=== PATIENT | female | born 1945 | race Caucasian/White ===

== ENCOUNTER → 2018-02-27 | Outpatient (CLI) | payer MEDICARE, OTHER | END | disposition home or self-care (01) | LOC: PCVCCLINIC 11:50 | PROVIDERS: ATTEND Internal Medicine | DX: E11.9 Type 2 diabetes mellitus without complications (principal); I51.81 Takotsubo syndrome; R06.00 Dyspnea, unspecified; F17.201 Nicotine dependence, unspecified, in remission; Z79.899 Other long term (current) drug therapy | CPT/HCPCS: 93005; G0463 ==

== ENCOUNTER → 2018-03-06 | Outpatient (CLI) | payer MEDICARE, OTHER ==
[~2018-03-06] MED LIST: REGADENOSON 0.4 MG/5 ML DISP.SYRIN. IV ONE
--- NOTE | 2018-03-06 12:21 | PCVCIMAG ---
APPROVED REPORT Study performed: 03/06/2018 08:13:55 EXAM: Comprehensive 2D, Doppler, and color-flow Echocardiogram Patient Location: Echo lab Status: routine BSA: 1.57 HR: 87 bpmBP: 110/70 mmHg Rhythm: NSR Other Information Study Quality: Adequate Indications Diabetes Dyspnea Hypertension/HDD Hyperlipidemia, COPD, 2D Dimensions LVEF(%): 67.34 (>50%) IVSd: 12.37 (7-11mm)LVOT Diam: 13.80 (18-24mm) LVDd: 27.57 mm PWd: 12.07 (7-11mm)Ascending Ao: 22.92 (22-36mm) LVDs: 17.69 (25-40mm) Left Atrium: 37.52 (27-40mm) Aortic Root: 22.56 mm LV Single Plane 4CH: 73.43 % LV Single Plane 2CH: 73.48 %Goss's LVEF: 73.46 % Volumes Left Atrial Volume (Systole) Single Plane 4CH: 28.26 mLSingle Plane 2CH: 33.76 mL LA ESV Index: 20.00 mL/m2 Aortic Valve AoV Peak Cristino.: 1.85 m/s AO Peak Gr.: 13.64 mmHg Mitral Valve E/A Ratio: 0.6 MV Decel. Time: 212.62 ms MV E Max Cristino.: 0.70 m/s MV A Cristino.: 1.13 m/s IVRT: 148.79 ms TDI E/Lateral E': 10.00E/Medial E': 17.50 Medial E' Cristino.: 0.04 m/s Lateral E' Cristino.: 0.07 m/s Pulmonary Valve PV Peak Gr.: 4.61 mmHg Pulmonary Vein P Vein S: 0.63 m/sP Vein A: 0.32 m/s P Vein D: 0.26 m/sP Vein A Dur.: 76.1 msec P Vein S/D Ratio: 2.42 Tricuspid Valve TR Peak Cristino.: 2.37 m/s TR Peak Gr.: 22.47 mmHg Left Ventricle The left ventricle is normal size. There is normal LV segmental wall motion. Mild to moderate concentric left ventricular hypertrophy. Left ventricular systolic function is normal. The left ventricular ejection fraction is within the normal range. LVEF is 60-65%. Grade I - abnormal relaxation pattern. Right Ventricle The right ventricle is normal size. The right ventricular systolic function is normal. Atria The left atrium size is normal. The right atrium size is normal. Aortic Valve LVOT Rest gradient is 20mmhg. LVOT valsalva gradient is 64mmhg. No aortic regurgitation is present. There is no aortic valvular stenosis. Mitral Valve The mitral valve is normal in structure. There is no mitral valve regurgitation noted. No evidence of mitral valve stenosis. Tricuspid Valve The tricuspid valve is normal in structure. Trace tricuspid regurgitation. Pulmonary artery pressure is 30mmhg. Pulmonic Valve The pulmonary valve is normal in structure. There is no pulmonic valvular regurgitation. Great Vessels The aortic root is normal in size. IVC is normal in size and collapses with >50% inspiration Pericardium There is no pericardial effusion. <Conclusion> The left ventricle is normal size. Mild to moderate concentric left ventricular hypertrophy. LVEF is 60-65%. LVOT Rest gradient is 20mmhg. LVOT valsalva gradient is 64mmhg. The mitral valve is normal in structure. There is no mitral valve regurgitation noted. No evidence of MANUEL on M mode although the leaflet itself does appear to open onto septal hypertrophy The tricuspid valve is normal in structure. Trace tricuspid regurgitation. Pulmonary artery pressure is 30mmhg. The pulmonary valve is normal in structure. The aortic root is normal in size. There is no pericardial effusion.
--- NOTE | 2018-03-07 10:03 | PCVCIMAG ---
APPROVED REPORT Imaging Protocol: Rest Tc-99m/Stress Tc-99m 1 day Study performed: 03/06/2018 09:07:09 Indication: Cardiomyopathy, Dyspnea Patient Location: Out-Patient Stress Nurse: Nancie Dempsey RN NE Tech:JOHNATHON SwartzMT Ht: 5 ft 2 in Wt: 125 lbs BSA: 1.57 m2 HR: 83 bpm BP: 134/63 mmHg BMI: 22.8 Rhythm: NSR, ST & T Abn Medical History Medical History: HTN, Hyperlipidemia, COPD, Diabetic Noninsulin, Former Smoker, Age Medications: Albuterol,Wellbutrin, Prozac, Crestor Allergies: No known drug allergies Pretest Chest Pain Characteristics: No chest pain Exercise History: Sedentary Physical Disabilities: Legs Resting Data Rest SPECT myocardial perfusion imaging was performed in supine position 45 minutes following the intravenous injection of 9.7 mCi of Tc-99m Sestamibi. Time of rest injection: 0900 Date: 03/06/2018 Administration Route: IV Administration Site: Right AC Pharmacologic Stress Pharmacologic stress test was performed by injecting Regadenoson 0.4 mg IV push over 10-15 seconds immediately followed by the intravenous injection of 33.2 mCi of Tc-99m Sestamibi. Time of stress injection: 1015 Date: 03/06/2018 Administration Route: IV Administration Site: Right AC Gated Stress SPECT was performed 45 minutes after stress injection. The images were gated to evaluate regional wall motion and calculate left ventricular ejection fraction. Stress Test Details Stress Test: Pharmacologic stress testing performed using 0.4 mg of regadenoson per 5 mL given IV over 10 seconds. Reason for pharmacologic stress test: physical limitation. HRMax Heart Rate (APMHR): 148 bpm Resting HR: 83 bpmTarget HR (85% APMHR): 125 bpm Max HR Achieved: 112 bpm % of APMHR: 75 Recovery HR: 105 bpm BP Resting BP: 134/63 mmHg Recovery BP: 129/66 mmHg ECG Resting ECG: Sinus Rhythm, nonspecific ST-T abnormalities Stress ECG: Sinus Tachycardia, nonspecific ST-T abnormalities Recovery ECG: Sinus Tachycardia, nonspecific ST-T abnormalities Clinical Reason for Termination: Completed protocol Stress Symptoms: Lightheaded Exercise duration: 0 min 55 sec Symptoms resolved during recovery. Stress ECG Conclusion 1. Adequate response to intravenous Lexiscan 2. Inadequate heart rate for ECG diagnosis Study Data Post stress, the left ventricular ejection was 73%.. SSS: 0 SRS: 0 SDS: 0 TID = 1.00. Perfusion There is a medium area of moderately reduced uptake in the mid and apical segment of the anterolateral wall which is seen on the stress images and improves on the resting images. This area thickens and moves normally and is most consistent with ischemia. Nuclear Conclusion ECG Findings: non-diagnostic Clinical Findings: negative for ischemia Nuclear Findings: positive for ischemia Exercise Capacity: not assessed Left Ventricular Function: abnormal 1. Immediately to high risk study based on reversible anterolateral wall defect suggestive of ischemia Interpreted by: Jhonny Juan MD Electronically Approved: 03/07/2018 10:02:30 <Conclusion> 1. Adequate response to intravenous Lexiscan 2. Inadequate heart rate for ECG diagnosis
== END | disposition home or self-care (01) ==
LOC: PCVCIMAG 13:24
PROVIDERS: ATTEND Internal Medicine
DX: I51.7 Cardiomegaly (principal); R06.09 Other forms of dyspnea; E11.9 Type 2 diabetes mellitus without complications; I10 Essential (primary) hypertension; E78.5 Hyperlipidemia, unspecified; J44.9 Chronic obstructive pulmonary disease, unspecified; I42.9 Cardiomyopathy, unspecified; Z87.891 Personal history of nicotine dependence
CPT/HCPCS: 78452; 93017; 93306; A9500; J2785

== ENCOUNTER → 2018-03-27 | Outpatient (CLI) | payer MEDICARE, OTHER | END | disposition home or self-care (01) | LOC: PCVCCLINIC 10:50 | PROVIDERS: ATTEND Internal Medicine | DX: Z01.812 Encounter for preprocedural laboratory examination (principal); I25.2 Old myocardial infarction; R06.09 Other forms of dyspnea; I10 Essential (primary) hypertension; E11.9 Type 2 diabetes mellitus without complications; Z79.82 Long term (current) use of aspirin; Z87.891 Personal history of nicotine dependence | CPT/HCPCS: 36415; G0463 ==

== ENCOUNTER → 2018-05-03 | Outpatient (CLI) | payer MEDICARE, OTHER | END | disposition home or self-care (01) | LOC: PCVCCLINIC 10:00 | PROVIDERS: ATTEND Internal Medicine | DX: I10 Essential (primary) hypertension (principal); R06.09 Other forms of dyspnea; E11.9 Type 2 diabetes mellitus without complications; I42.2 Other hypertrophic cardiomyopathy; E03.9 Hypothyroidism, unspecified; E78.5 Hyperlipidemia, unspecified; J44.9 Chronic obstructive pulmonary disease, unspecified; F32.9 Major depressive disorder, single episode, unspecified; Z79.82 Long term (current) use of aspirin; Z79.899 Other long term (current) drug therapy; Z79.4 Long term (current) use of insulin; Z87.891 Personal history of nicotine dependence | CPT/HCPCS: G0463 ==

== ENCOUNTER → 2018-08-27 | Outpatient (CLI) | payer MEDICARE, OTHER | END | disposition home or self-care (01) | LOC: PCVCCLINIC 15:04 | PROVIDERS: ATTEND Internal Medicine | DX: I42.2 Other hypertrophic cardiomyopathy (principal); I10 Essential (primary) hypertension; R06.00 Dyspnea, unspecified; E11.9 Type 2 diabetes mellitus without complications; E78.5 Hyperlipidemia, unspecified; E03.9 Hypothyroidism, unspecified; M19.90 Unspecified osteoarthritis, unspecified site; Z79.82 Long term (current) use of aspirin; Z79.899 Other long term (current) drug therapy; Z87.891 Personal history of nicotine dependence | CPT/HCPCS: 93005; G0463 ==

== ENCOUNTER → 2018-12-03 | Outpatient (CLI) | payer MEDICARE, OTHER | END | disposition home or self-care (01) | LOC: PCVCCLINIC 10:30 | PROVIDERS: ATTEND Internal Medicine | DX: I10 Essential (primary) hypertension (principal); R06.00 Dyspnea, unspecified; R55 Syncope and collapse; I42.2 Other hypertrophic cardiomyopathy; J44.9 Chronic obstructive pulmonary disease, unspecified; E78.00 Pure hypercholesterolemia, unspecified; E78.5 Hyperlipidemia, unspecified; E03.9 Hypothyroidism, unspecified; M85.80 Other specified disorders of bone density and structure, unspecified site; Z79.4 Long term (current) use of insulin; Z79.82 Long term (current) use of aspirin; Z79.899 Other long term (current) drug therapy; Z87.891 Personal history of nicotine dependence | CPT/HCPCS: G0463 ==